=== PATIENT | male | born 1955 | race Caucasian/White ===

== ENCOUNTER 2018-01-31 10:18 | Outpatient (CLI) | payer OTHER ==
[~2018-01-31 10:18] MED LIST: [UNRECOGNIZED DRUG - OTHER] PO; multivit PO; vit c PO
[2018-01-31 11:01] LABS: BASOPHILS % (AUTO) 0.5 % (0-1); EOSINOPHILS # (AUTO) 0.2 X10'3 (0-0.9); HEMATOCRIT 46.2 % (42.0-52.0); HEMOGLOBIN 15.5 g/dl (14.0-17.9); LYMPHOCYTES # (AUTO) 5.4 X10'3 (1.1-4.8); LYMPHOCYTES % (AUTO) 54.1 % (21-51); MEAN CORPUSCULAR HGB CONC 33.5 % (33.0-36.5); MEAN CORPUSCULAR VOLUME 92.5 FL (78-98); MEAN PLATELET VOLUME 8.2 FL (7.4-10.4); MONOCYTES # (AUTO) 0.9 X10'3 (0-0.9); NEUTROPHILS # (AUTO) 3.4 X10'3 (1.8-7.7); NEUTROPHILS % (AUTO) 34.4 % (42-75); PLATELET COUNT 299 X10'3 (140-440); RED BLOOD COUNT 4.99 X10'6 (4.70-6.10); RED CELL DISTRIBUTION WIDTH 13.7 % (11.5-14.5)
== END 2018-01-31 23:59 | disposition home or self-care (01) ==
LOC: LAB 10:18
PROVIDERS: ATTEND Anesthesiology
DX: C95.90 Leukemia, unspecified not having achieved remission (principal); Z87.891 Personal history of nicotine dependence
CPT/HCPCS: 36415; 85025

== ENCOUNTER 2019-09-27 10:58 | Outpatient (CLI) | payer OTHER | END 2019-09-27 23:59 | disposition home or self-care (01) | LOC: 64 CT 10:58 | PROVIDERS: ATTEND Internal Medicine | DX: I35.9 Nonrheumatic aortic valve disorder, unspecified (principal) | CPT/HCPCS: 71250 ==

== ENCOUNTER 2019-09-28 15:10 | Outpatient (CLI) | payer OTHER ==
[2019-09-28 16:09] LABS: ALBUMIN 3.4 G/DL (3.4-5.0); ANION GAP 12 (8-16); BLOOD UREA NITROGEN 19 MG/DL (7-18); BUN/CREATININE RATIO 15.3 (5.4-32.0); CALCIUM 8.5 MG/DL (8.5-10.1); CHLORIDE 107 MMOL/L (99-107); CREATININE 1.24 MG/DL (0.60-1.10); GLUCOSE 104 MG/DL (70-104); PHOSPHORUS 2.9 MG/DL (2.3-4.5); POTASSIUM 3.8 MMOL/L (3.5-5.1); SODIUM 143 MMOL/L (135-145); TOTAL CARBON DIOXIDE 23.8 MMOL/L (24-32); eGFR 59 ML/MIN
[2019-09-28] MEDS ORDERED: iohexol 300mg/ml 100ml inj. ONE (16:14)
== END 2019-09-28 23:59 | disposition home or self-care (01) ==
LOC: 64 CT 15:10
PROVIDERS: ATTEND Internal Medicine
DX: R59.9 Enlarged lymph nodes, unspecified (principal); R94.5 Abnormal results of liver function studies
CPT/HCPCS: 36415; 71260; 80069; Q9967

== ENCOUNTER 2020-01-22 09:49 | Outpatient (CLI) | payer OTHER ==
[2020-01-22] MEDS ORDERED: iohexol 300mg/ml 100ml inj. ONE (09:55)
== END 2020-01-22 23:59 | disposition home or self-care (01) ==
LOC: 64 CT 09:49
PROVIDERS: ATTEND Internal Medicine Hematology & Oncology
DX: C91.40 Hairy cell leukemia not having achieved remission (principal); K40.90 Unilateral inguinal hernia, without obstruction or gangrene, not specified as recurrent; K59.00 Constipation, unspecified; N28.1 Cyst of kidney, acquired
CPT/HCPCS: 70491; 71260; 74177; Q9967

== ENCOUNTER 2020-03-25 07:22 | Outpatient (CLI) | payer BC ==
[2020-03-25 08:05] LABS: BASOPHILS # (AUTO) 0.1 X10'3 (0-0.2); EOSINOPHILS # (AUTO) 0.8 X10'3 (0-0.9); EOSINOPHILS % (AUTO) 10.9 % (0-6); HEMATOCRIT 44.1 % (42.0-52.0); HEMOGLOBIN 14.8 g/dl (14.0-17.9); LYMPHOCYTES % (AUTO) 14.2 % (21-51); MEAN CORPUSCULAR HEMOGLOBIN 30.8 PG (27.0-31.0); MEAN CORPUSCULAR HGB CONC 33.5 g/dL (33.0-36.5); MEAN CORPUSCULAR VOLUME 92.1 FL (78-98); MEAN PLATELET VOLUME 7.4 FL (7.4-10.4); MONOCYTES # (AUTO) 1.4 X10'3 (0-0.9); MONOCYTES % (AUTO) 19.8 % (2-12); NEUTROPHILS # (AUTO) 3.7 X10'3 (1.8-7.7); NEUTROPHILS % (AUTO) 54.1 % (42-75); PLATELET COUNT 390 X10'3 (140-440); RED BLOOD COUNT 4.79 X10'6 (4.70-6.10); RED CELL DISTRIBUTION WIDTH 14.2 % (11.5-14.5); WHITE BLOOD COUNT 6.9 X10'3 (4.5-11.0)
[2020-03-25 08:25] LABS: ALANINE AMINOTRANSFERASE 26 U/L (12-78); ALBUMIN 3.4 G/DL (3.4-5.0); ALBUMIN/GLOBULIN RATIO 0.9 (1.1-1.5); ALKALINE PHOSPHATASE 90 IU/L (46-116); ANION GAP 10 (8-16); ASPARTATE AMINO TRANSFERASE 18 U/L (10-37); BILIRUBIN,TOTAL 0.3 MG/DL (0.1-1.0); BLOOD UREA NITROGEN 15 MG/DL (7-18); BUN/CREATININE RATIO 12.9 (5.4-32.0); CALCIUM 8.9 MG/DL (8.5-10.1); CHLORIDE 108 MMOL/L (99-107); CREATININE 1.16 MG/DL (0.60-1.10); GLUCOSE 93 MG/DL (70-104); LACTATE DEHYDROGENASE 171 U/L (85-227); MAGNESIUM 2.2 MG/DL (1.5-2.4); POTASSIUM 4.4 MMOL/L (3.5-5.1); SODIUM 143 MMOL/L (135-145); TOTAL CARBON DIOXIDE 25.5 MMOL/L (24-32); eGFR 63 ML/MIN
[2020-03-25 08:55] LABS: TOTAL CELLS COUNTED 100
[2020-03-25 08:56] LABS: PLATELET ESTIMATE NORMAL
[2020-03-25 08:58] LABS: SCHISTOCYTES FEW
[2020-03-25 08:59] LABS: BURR CELLS FEW
[2020-03-25 09:00] LABS: ACANTHOCYTES FEW
[2020-03-25 09:01] LABS: TOXIC GRANULATION 1+
[2020-03-25 09:13] LABS: IRON 56 UG/DL (53-167)
[2020-03-25 09:14] LABS: % IRON SATURATION 16 % (11-46); TOTAL IRON BINDING CAPACITY 367 UG/DL (259-388)
[2020-03-26 09:10] LABS: BASOS 1 % (Not Estab.); EOS 8 % (Not Estab.); EOS (ABSOLUTE) 0.6 x10E3/uL (0.0-0.4); HEMATOCRIT 45.2 % (37.5-51.0); HEMOGLOBIN 14.6 g/dL (13.0-17.7); LYMPHS 17 % (Not Estab.); LYMPHS (ABSOLUTE) 1.3 x10E3/uL (0.7-3.1); MCH 30.8 pg (26.6-33.0); MCHC 32.3 g/dL (31.5-35.7); MCV 95 fL (79-97); MONOCYTES 18 % (Not Estab.); MONOCYTES (ABSOLUTE) 1.4 x10E3/uL (0.1-0.9); NEUTROPHILS 56 % (Not Estab.); PLATELETS 388 x10E3/uL (150-450); RBC 4.74 x10E6/uL (4.14-5.80); RDW 14.5 % (11.6-15.4); WBC 7.7 x10E3/uL (3.4-10.8)
[2020-03-26 17:35] LABS: % CD 4 POS. LYMPH. 30.6 % (30.8-58.5); % CD 8 POS. LYMPH. 15.1 % (12.0-35.5); ABS. CD 8 SUPPRESSOR 196 /uL (109-897); ABSOLUTE CD 4 HELPER 398 /uL (359-1519); CD4/CD8 RATIO 2.03 (0.92-3.72)
== END 2020-03-25 23:59 | disposition home or self-care (01) ==
LOC: LAB 07:22
PROVIDERS: ATTEND Internal Medicine Hematology & Oncology
DX: C91.40 Hairy cell leukemia not having achieved remission (principal)
CPT/HCPCS: 36415; 80053; 82607; 83540; 83550; 83615; 83735; 84550; 85025; 86360

== ENCOUNTER 2020-04-08 07:57 | Outpatient (CLI) | payer BC ==
[2020-04-08 08:56] LABS: BASOPHILS # (AUTO) 0.1 X10'3 (0-0.2); BASOPHILS % (AUTO) 1.1 % (0-1); EOSINOPHILS # (AUTO) 0.7 X10'3 (0-0.9); EOSINOPHILS % (AUTO) 10.5 % (0-6); HEMOGLOBIN 15.2 g/dl (14.0-17.9); LYMPHOCYTES # (AUTO) 1.4 X10'3 (1.1-4.8); LYMPHOCYTES % (AUTO) 21.3 % (21-51); MEAN CORPUSCULAR HEMOGLOBIN 31.2 PG (27.0-31.0); MEAN CORPUSCULAR HGB CONC 33.7 g/dL (33.0-36.5); MEAN CORPUSCULAR VOLUME 92.6 FL (78-98); MEAN PLATELET VOLUME 7.5 FL (7.4-10.4); MONOCYTES # (AUTO) 1.3 X10'3 (0-0.9); MONOCYTES % (AUTO) 20.4 % (2-12); NEUTROPHILS # (AUTO) 3.1 X10'3 (1.8-7.7); NEUTROPHILS % (AUTO) 46.7 % (42-75); PLATELET COUNT 349 X10'3 (140-440); RED BLOOD COUNT 4.86 X10'6 (4.70-6.10); RED CELL DISTRIBUTION WIDTH 13.9 % (11.5-14.5); WHITE BLOOD COUNT 6.6 X10'3 (4.5-11.0)
[2020-04-08 09:10] LABS: ALANINE AMINOTRANSFERASE 27 U/L (12-78); ALBUMIN 3.4 G/DL (3.4-5.0); ALBUMIN/GLOBULIN RATIO 0.9 (1.1-1.5); ALKALINE PHOSPHATASE 69 IU/L (46-116); ANION GAP 8 (8-16); ASPARTATE AMINO TRANSFERASE 19 U/L (10-37); BILIRUBIN,TOTAL 0.4 MG/DL (0.1-1.0); BLOOD UREA NITROGEN 20 MG/DL (7-18); BUN/CREATININE RATIO 18.3 (5.4-32.0); CALCIUM 9.1 MG/DL (8.5-10.1); CHLORIDE 106 MMOL/L (99-107); CREATININE 1.09 MG/DL (0.60-1.10); GLUCOSE 96 MG/DL (70-104); LACTATE DEHYDROGENASE 167 U/L (85-227); MAGNESIUM 2.1 MG/DL (1.5-2.4); POTASSIUM 4.3 MMOL/L (3.5-5.1); SODIUM 139 MMOL/L (135-145); TOTAL CARBON DIOXIDE 24.7 MMOL/L (24-32); TOTAL PROTEIN 7.2 G/DL (6.4-8.2); eGFR 68 ML/MIN
[2020-04-08 10:57] LABS: BANDS% (MANUAL) 3 % (0-10); NEUTROPHILS % (MANUAL) 46 % (42-75); TOTAL CELLS COUNTED 100
[2020-04-08 10:58] LABS: BASOPHILS % (MANUAL) 2 % (0-1); EOSINOPHILS % (MANUAL) 10 % (0-6); HOWELL-JOLLY BODIES FEW; LYMPHOCYTES % (MANUAL) 17 % (21-51); MONOCYTES % (MANUAL) 18 % (2-12); PLATELET ESTIMATE NORMAL; POIKILOCYTOSIS 1+; POLYCHROMASIA FEW; REACTIVE LYMPHOCYTES % 4 % (0-0); SCHISTOCYTES FEW
[2020-04-08 10:59] LABS: BURR CELLS FEW
[2020-04-08 11:01] LABS: ACANTHOCYTES 1+; ELLIPTOCYTES FEW
[2020-04-09 11:14] LABS: BASO (ABSOLUTE) 0.1 x10E3/uL (0.0-0.2); BASOS 1 % (Not Estab.); EOS 10 % (Not Estab.); EOS (ABSOLUTE) 0.7 x10E3/uL (0.0-0.4); HEMATOCRIT 46.3 % (37.5-51.0); HEMATOLOGY COMMENTS: Note: (.); LYMPHS 24 % (Not Estab.); LYMPHS (ABSOLUTE) 1.6 x10E3/uL (0.7-3.1); MCH 30.9 pg (26.6-33.0); MCHC 32.4 g/dL (31.5-35.7); MCV 96 fL (79-97); MONOCYTES 21 % (Not Estab.); MONOCYTES (ABSOLUTE) 1.4 x10E3/uL (0.1-0.9); NEUTROPHILS 44 % (Not Estab.); NEUTROPHILS (ABSOLUTE) 2.9 x10E3/uL (1.4-7.0); PLATELETS 355 x10E3/uL (150-450); RBC 4.85 x10E6/uL (4.14-5.80); RDW 14.5 % (11.6-15.4); WBC 6.6 x10E3/uL (3.4-10.8)
[2020-04-09 17:18] LABS: % CD 4 POS. LYMPH. 27.6 % (30.8-58.5); % CD 8 POS. LYMPH. 26.7 % (12.0-35.5); ABS. CD 8 SUPPRESSOR 427 /uL (109-897); ABSOLUTE CD 4 HELPER 442 /uL (359-1519); CD4/CD8 RATIO 1.03 (0.92-3.72)
== END 2020-04-08 23:59 | disposition home or self-care (01) ==
LOC: LAB 07:57
PROVIDERS: ATTEND Internal Medicine Hematology & Oncology
DX: C91.40 Hairy cell leukemia not having achieved remission (principal); D50.8 Other iron deficiency anemias
CPT/HCPCS: 36415; 80053; 83615; 83735; 84550; 85025; 86360

== ENCOUNTER → 2020-07-18 | Outpatient (CLI) | payer BC ==
[2020-07-18 08:24] LABS: BASOPHILS # (AUTO) 0.1 X10'3 (0-0.2); BASOPHILS % (AUTO) 1.2 % (0-1); EOSINOPHILS # (AUTO) 0.5 X10'3 (0-0.9); EOSINOPHILS % (AUTO) 7.5 % (0-6); HEMATOCRIT 43.9 % (42.0-52.0); HEMOGLOBIN 14.7 g/dl (14.0-17.9); LYMPHOCYTES # (AUTO) 1.6 X10'3 (1.1-4.8); LYMPHOCYTES % (AUTO) 26.8 % (21-51); MEAN CORPUSCULAR HEMOGLOBIN 31.6 PG (27.0-31.0); MEAN CORPUSCULAR HGB CONC 33.6 g/dL (33.0-36.5); MEAN PLATELET VOLUME 7.8 FL (7.4-10.4); MONOCYTES # (AUTO) 0.9 X10'3 (0-0.9); MONOCYTES % (AUTO) 14.5 % (2-12); PLATELET COUNT 327 X10'3 (140-440); RED BLOOD COUNT 4.66 X10'6 (4.70-6.10); RED CELL DISTRIBUTION WIDTH 14.5 % (11.5-14.5)
[2020-07-18 08:36] LABS: ALANINE AMINOTRANSFERASE 27 U/L (12-78); ALBUMIN 3.5 G/DL (3.4-5.0); ALKALINE PHOSPHATASE 79 IU/L (46-116); ANION GAP 6 (8-16); ASPARTATE AMINO TRANSFERASE 17 U/L (10-37); BILIRUBIN,TOTAL 0.4 MG/DL (0.1-1.0); BLOOD UREA NITROGEN 15 MG/DL (7-18); BUN/CREATININE RATIO 14.6 (5.4-32.0); CALCIUM 8.9 MG/DL (8.5-10.1); CHLORIDE 110 MMOL/L (99-107); CREATININE 1.03 MG/DL (0.60-1.10); GLUCOSE 81 MG/DL (70-104); LACTATE DEHYDROGENASE 151 U/L (85-227); MAGNESIUM 2.4 MG/DL (1.5-2.4); POTASSIUM 4.1 MMOL/L (3.5-5.1); SODIUM 144 MMOL/L (135-145); TOTAL CARBON DIOXIDE 28.5 MMOL/L (24-32); eGFR 72 ML/MIN
[2020-07-18 09:22] LABS: IRON 80 UG/DL (53-167)
== END | disposition home or self-care (01) ==
LOC: LAB 07:50
PROVIDERS: ATTEND Internal Medicine Hematology & Oncology
DX: C91.40 Hairy cell leukemia not having achieved remission (principal); D50.8 Other iron deficiency anemias
CPT/HCPCS: 36415; 80053; 82607; 83540; 83615; 83735; 84550; 85025

== ENCOUNTER 2020-10-27 08:16 | Outpatient (CLI) | payer BC ==
[2020-10-27 09:03] LABS: BASOPHILS % (AUTO) 0.8 % (0-1); EOSINOPHILS # (AUTO) 0.5 X10'3 (0-0.9); EOSINOPHILS % (AUTO) 9.3 % (0-6); HEMATOCRIT 43.4 % (42.0-52.0); HEMOGLOBIN 14.7 g/dl (14.0-17.9); LYMPHOCYTES # (AUTO) 1.5 X10'3 (1.1-4.8); LYMPHOCYTES % (AUTO) 26.5 % (21-51); MEAN CORPUSCULAR HEMOGLOBIN 32.2 PG (27.0-31.0); MEAN CORPUSCULAR HGB CONC 33.9 g/dL (33.0-36.5); MEAN CORPUSCULAR VOLUME 95.1 FL (78-98); MEAN PLATELET VOLUME 7.5 FL (7.4-10.4); MONOCYTES # (AUTO) 0.8 X10'3 (0-0.9); MONOCYTES % (AUTO) 15.5 % (2-12); NEUTROPHILS # (AUTO) 2.6 X10'3 (1.8-7.7); NEUTROPHILS % (AUTO) 47.9 % (42-75); PLATELET COUNT 317 X10'3 (140-440); RED BLOOD COUNT 4.57 X10'6 (4.70-6.10); RED CELL DISTRIBUTION WIDTH 13.5 % (11.5-14.5); WHITE BLOOD COUNT 5.5 X10'3 (4.5-11.0)
[2020-10-27 09:18] LABS: ALANINE AMINOTRANSFERASE 31 U/L (12-78); ALBUMIN 3.7 G/DL (3.4-5.0); ALBUMIN/GLOBULIN RATIO 1.1 (1.1-1.5); ALKALINE PHOSPHATASE 69 IU/L (46-116); ANION GAP 8 (8-16); ASPARTATE AMINO TRANSFERASE 23 U/L (10-37); BILIRUBIN,TOTAL 0.5 MG/DL (0.1-1.0); BLOOD UREA NITROGEN 15 MG/DL (7-18); BUN/CREATININE RATIO 13.2 (5.4-32.0); CHLORIDE 107 MMOL/L (99-107); CREATININE 1.14 MG/DL (0.60-1.10); GLUCOSE 82 MG/DL (70-104); POTASSIUM 4.1 MMOL/L (3.5-5.1); SODIUM 143 MMOL/L (135-145); TOTAL CARBON DIOXIDE 27.8 MMOL/L (24-32); TOTAL PROTEIN 7.2 G/DL (6.4-8.2); eGFR 64 ML/MIN
== END 2020-10-27 23:59 | disposition home or self-care (01) ==
LOC: LAB 08:16
PROVIDERS: ATTEND Internal Medicine
DX: R94.5 Abnormal results of liver function studies (principal); Z85.6 Personal history of leukemia
CPT/HCPCS: 80053; 85025

== ENCOUNTER 2020-11-03 08:32 | Outpatient (CLI) | payer BC ==
[2020-11-03] MEDS ORDERED: iohexol 300 MG/1 ML 50ml polymer ONE (09:01)
[2020-11-03] MEDS ORDERED: iohexol 300mg/ml 100ml inj. ONE (09:01)
== END 2020-11-03 23:59 | disposition home or self-care (01) ==
LOC: 64 CT 08:32
PROVIDERS: ATTEND Internal Medicine
DX: C91.40 Hairy cell leukemia not having achieved remission (principal); R91.8 Other nonspecific abnormal finding of lung field; M48.02 Spinal stenosis, cervical region; M50.323 Other cervical disc degeneration at C6-C7 level; K40.90 Unilateral inguinal hernia, without obstruction or gangrene, not specified as recurrent; N40.0 Benign prostatic hyperplasia without lower urinary tract symptoms; N28.1 Cyst of kidney, acquired
CPT/HCPCS: 70491; 71260; 74177; Q9967

== ENCOUNTER 2021-02-10 08:45 | Outpatient (CLI) | payer BC ==
[2021-02-10 09:28] LABS: BASOPHILS # (AUTO) 0.1 X10'3 (0-0.2); BASOPHILS % (AUTO) 0.8 % (0-1); EOSINOPHILS # (AUTO) 0.4 X10'3 (0-0.9); EOSINOPHILS % (AUTO) 5.9 % (0-6); HEMATOCRIT 42.2 % (42.0-52.0); HEMOGLOBIN 14.3 g/dl (14.0-17.9); LYMPHOCYTES # (AUTO) 2.6 X10'3 (1.1-4.8); MEAN CORPUSCULAR HEMOGLOBIN 32.7 PG (27.0-31.0); MEAN CORPUSCULAR HGB CONC 33.9 g/dL (33.0-36.5); MEAN CORPUSCULAR VOLUME 96.6 FL (78-98); MEAN PLATELET VOLUME 7.5 FL (7.4-10.4); MONOCYTES # (AUTO) 0.9 X10'3 (0-0.9); MONOCYTES % (AUTO) 13.6 % (2-12); NEUTROPHILS # (AUTO) 2.5 X10'3 (1.8-7.7); NEUTROPHILS % (AUTO) 39.7 % (42-75); PLATELET COUNT 310 X10'3 (140-440); RED BLOOD COUNT 4.37 X10'6 (4.70-6.10); RED CELL DISTRIBUTION WIDTH 13.6 % (11.5-14.5); WHITE BLOOD COUNT 6.4 X10'3 (4.5-11.0)
== END 2021-02-10 23:59 | disposition home or self-care (01) ==
LOC: LAB 08:45
PROVIDERS: ATTEND Internal Medicine
DX: C91.42 Hairy cell leukemia, in relapse (principal)
CPT/HCPCS: 36415; 85025

== ENCOUNTER 2021-05-12 07:57 | Outpatient (CLI) | payer BC ==
[2021-05-12 09:17] LABS: BASOPHILS # (AUTO) 0.1 X10'3 (0-0.2); BASOPHILS % (AUTO) 1.2 % (0-1); EOSINOPHILS # (AUTO) 0.2 X10'3 (0-0.9); EOSINOPHILS % (AUTO) 3.3 % (0-6); HEMATOCRIT 42.6 % (42.0-52.0); HEMOGLOBIN 14.4 g/dl (14.0-17.9); LYMPHOCYTES # (AUTO) 2.9 X10'3 (1.1-4.8); LYMPHOCYTES % (AUTO) 39.6 % (21-51); MEAN CORPUSCULAR HEMOGLOBIN 32.4 PG (27.0-31.0); MEAN CORPUSCULAR HGB CONC 33.7 g/dL (33.0-36.5); MEAN CORPUSCULAR VOLUME 96.2 FL (78-98); MONOCYTES # (AUTO) 0.7 X10'3 (0-0.9); MONOCYTES % (AUTO) 9.6 % (2-12); NEUTROPHILS # (AUTO) 3.4 X10'3 (1.8-7.7); NEUTROPHILS % (AUTO) 46.3 % (42-75); PLATELET COUNT 318 X10'3 (140-440); RED BLOOD COUNT 4.43 X10'6 (4.70-6.10); RED CELL DISTRIBUTION WIDTH 13.2 % (11.5-14.5); WHITE BLOOD COUNT 7.4 X10'3 (4.5-11.0)
== END 2021-05-12 23:59 | disposition home or self-care (01) ==
LOC: LAB 07:57
PROVIDERS: ATTEND Internal Medicine
DX: C91.42 Hairy cell leukemia, in relapse (principal); I10 Essential (primary) hypertension
CPT/HCPCS: 85025

== ENCOUNTER 2021-06-17 08:10 | Outpatient (CLI) | payer BC ==
[2021-06-17 09:16] LABS: BASOPHILS # (AUTO) 0.1 X10'3 (0-0.2); BASOPHILS % (AUTO) 0.9 % (0-1); EOSINOPHILS # (AUTO) 0.3 X10'3 (0-0.9); EOSINOPHILS % (AUTO) 4.8 % (0-6); HEMATOCRIT 41.8 % (42.0-52.0); HEMOGLOBIN 14.1 g/dl (14.0-17.9); LYMPHOCYTES # (AUTO) 2.5 X10'3 (1.1-4.8); LYMPHOCYTES % (AUTO) 41.9 % (21-51); MEAN CORPUSCULAR HEMOGLOBIN 32.5 PG (27.0-31.0); MEAN CORPUSCULAR HGB CONC 33.8 g/dL (33.0-36.5); MEAN CORPUSCULAR VOLUME 96.1 FL (78-98); MONOCYTES # (AUTO) 0.7 X10'3 (0-0.9); NEUTROPHILS # (AUTO) 2.4 X10'3 (1.8-7.7); NEUTROPHILS % (AUTO) 40.4 % (42-75); PLATELET COUNT 317 X10'3 (140-440); RED BLOOD COUNT 4.35 X10'6 (4.70-6.10); RED CELL DISTRIBUTION WIDTH 13.5 % (11.5-14.5)
== END 2021-06-17 23:59 | disposition home or self-care (01) ==
LOC: LAB 08:10
PROVIDERS: ATTEND Internal Medicine
DX: C91.40 Hairy cell leukemia not having achieved remission (principal)
CPT/HCPCS: 36415; 85025

== ENCOUNTER 2021-10-02 08:43 | Outpatient (CLI) | payer BC ==
[2021-10-01 09:29] LABS: BASOPHILS # (AUTO) 0.1 X10'3 (0-0.2); BASOPHILS % (AUTO) 0.8 % (0-1); EOSINOPHILS # (AUTO) 0.3 X10'3 (0-0.9); EOSINOPHILS % (AUTO) 4.7 % (0-6); HEMATOCRIT 42.7 % (42.0-52.0); HEMOGLOBIN 14.4 g/dl (14.0-17.9); LYMPHOCYTES % (AUTO) 42.3 % (21-51); MEAN CORPUSCULAR HEMOGLOBIN 32.2 PG (27.0-31.0); MEAN CORPUSCULAR HGB CONC 33.7 g/dL (33.0-36.5); MEAN CORPUSCULAR VOLUME 95.3 FL (78-98); MEAN PLATELET VOLUME 7.7 FL (7.4-10.4); MONOCYTES # (AUTO) 0.8 X10'3 (0-0.9); MONOCYTES % (AUTO) 10.8 % (2-12); NEUTROPHILS # (AUTO) 2.9 X10'3 (1.8-7.7); NEUTROPHILS % (AUTO) 41.4 % (42-75); PLATELET COUNT 324 X10'3 (140-440); RED BLOOD COUNT 4.48 X10'6 (4.70-6.10); RED CELL DISTRIBUTION WIDTH 13.7 % (11.5-14.5); WHITE BLOOD COUNT 7.1 X10'3 (4.5-11.0)
[2021-10-01 09:44] LABS: ALANINE AMINOTRANSFERASE 25 U/L (12-78); ALBUMIN 3.6 G/DL (3.4-5.0); ALBUMIN/GLOBULIN RATIO 1.1 (1.1-1.5); ALKALINE PHOSPHATASE 69 IU/L (46-116); ASPARTATE AMINO TRANSFERASE 20 U/L (10-37); BILIRUBIN,TOTAL 0.5 MG/DL (0.1-1.0); BLOOD UREA NITROGEN 19 MG/DL (7-18); BUN/CREATININE RATIO 17.4 (5.4-32.0); CALCIUM 9.5 MG/DL (8.5-10.1); CHLORIDE 106 MMOL/L (99-107); CREATININE 1.09 MG/DL (0.60-1.10); GLUCOSE 81 MG/DL (70-104); TOTAL PROTEIN 6.9 G/DL (6.4-8.2); eGFR 68 ML/MIN
[2021-10-01 09:45] LABS: POTASSIUM 4.2 MMOL/L (3.5-5.1); SODIUM 140 MMOL/L (135-145)
[2021-10-01 11:53] LABS: ANION GAP 7 (8-16); TOTAL CARBON DIOXIDE 26.9 MMOL/L (24-32)
[2021-10-02] MEDS ORDERED: GADOTERATE MEGLUMINE 7.5 MMOL/15 ML VIAL IV ONE (12:42)
== END 2021-10-02 23:59 | disposition home or self-care (01) ==
LOC: RAD 08:43
PROVIDERS: ATTEND Otolaryngology
DX: H90.5 Unspecified sensorineural hearing loss (principal); R93.0 Abnormal findings on diagnostic imaging of skull and head, not elsewhere classified; I10 Essential (primary) hypertension
CPT/HCPCS: 36415; 70546; 80053; 85025; A9575

== ENCOUNTER → 2021-10-22 | Outpatient (CLI) | payer BC ==
[2021-10-22 10:02] LABS: BASOPHILS # (AUTO) 0.1 X10'3 (0-0.2); BASOPHILS % (AUTO) 0.8 % (0-1); EOSINOPHILS # (AUTO) 0.4 X10'3 (0-0.9); EOSINOPHILS % (AUTO) 4.9 % (0-6); HEMATOCRIT 44.4 % (42.0-52.0); LYMPHOCYTES # (AUTO) 3.3 X10'3 (1.1-4.8); LYMPHOCYTES % (AUTO) 43.4 % (21-51); MEAN CORPUSCULAR HEMOGLOBIN 32.1 PG (27.0-31.0); MEAN CORPUSCULAR HGB CONC 33.8 g/dL (33.0-36.5); MEAN CORPUSCULAR VOLUME 95.1 FL (78-98); MEAN PLATELET VOLUME 7.9 FL (7.4-10.4); MONOCYTES # (AUTO) 0.7 X10'3 (0-0.9); MONOCYTES % (AUTO) 9.6 % (2-12); NEUTROPHILS # (AUTO) 3.1 X10'3 (1.8-7.7); NEUTROPHILS % (AUTO) 41.3 % (42-75); PLATELET COUNT 315 X10'3 (140-440); RED BLOOD COUNT 4.67 X10'6 (4.70-6.10); RED CELL DISTRIBUTION WIDTH 13.5 % (11.5-14.5); WHITE BLOOD COUNT 7.5 X10'3 (4.5-11.0)
[2021-10-23 17:00] LABS: IMMUNOGLOBULIN A, QN, SERUM 235 mg/dL (61-437); IMMUNOGLOBULIN G, QN, SERUM 1268 mg/dL (603-1613); IMMUNOGLOBULIN M, QN, SERUM 52 mg/dL (20-172)
== END | disposition home or self-care (01) ==
LOC: LAB 09:15
PROVIDERS: ATTEND Internal Medicine
DX: C91.40 Hairy cell leukemia not having achieved remission (principal)
CPT/HCPCS: 36415; 82784; 85025

== ENCOUNTER 2021-11-02 08:02 | Outpatient (CLI) | payer BC ==
[2021-11-02 09:09] LABS: BASOPHILS # (AUTO) 0.1 X10'3 (0-0.2); EOSINOPHILS # (AUTO) 0.4 X10'3 (0-0.9); EOSINOPHILS % (AUTO) 4.1 % (0-6); HEMATOCRIT 43.9 % (42.0-52.0); LYMPHOCYTES # (AUTO) 2.9 X10'3 (1.1-4.8); LYMPHOCYTES % (AUTO) 31.7 % (21-51); MEAN CORPUSCULAR HEMOGLOBIN 32.3 PG (27.0-31.0); MEAN CORPUSCULAR HGB CONC 34.1 g/dL (33.0-36.5); MEAN CORPUSCULAR VOLUME 94.7 FL (78-98); MEAN PLATELET VOLUME 7.9 FL (7.4-10.4); MONOCYTES # (AUTO) 0.8 X10'3 (0-0.9); MONOCYTES % (AUTO) 9.2 % (2-12); NEUTROPHILS # (AUTO) 4.9 X10'3 (1.8-7.7); PLATELET COUNT 333 X10'3 (140-440); RED BLOOD COUNT 4.64 X10'6 (4.70-6.10); RED CELL DISTRIBUTION WIDTH 13.6 % (11.5-14.5)
[2021-11-03 10:29] LABS: IMMUNOGLOBULIN A, QN, SERUM 234 mg/dL (61-437); IMMUNOGLOBULIN G, QN, SERUM 1251 mg/dL (603-1613); IMMUNOGLOBULIN M, QN, SERUM 54 mg/dL (20-172)
== END 2021-11-02 23:59 | disposition home or self-care (01) ==
LOC: LAB 08:02
PROVIDERS: ATTEND Internal Medicine
DX: C91.40 Hairy cell leukemia not having achieved remission (principal)
CPT/HCPCS: 36415; 82784; 85025

== ENCOUNTER 2022-09-01 08:32 | Day surgery (SDC) | payer BC ==
[~2022-09-01] VITALS: Ht 175.3 cm; Wt 68.2 kg
[2022-09-01 08:40] VITALS: BP 118/71
[2022-09-01] MEDS ORDERED: FENTANYL CITRATE/PF 50 MCG/1 ML VIAL ONE (08:55)
[2022-09-01] MEDS ORDERED: MIDAZolam 1 MG/ML 5ML VIAL ONE (08:56)
[2022-09-01 10:20] VITALS: BP 118/71
[2022-09-01 10:30] VITALS: BP 94/55
[2022-09-01 10:40] VITALS: BP 103/56
[2022-09-01 10:50] VITALS: BP 107/56
== END 2022-09-01 11:00 | disposition home or self-care (01) ==
LOC: GI LAB 08:32
PROVIDERS: ATTEND Internal Medicine Gastroenterology
DX: Z09 Encounter for follow-up examination after completed treatment for conditions other than malignant neoplasm (principal); K57.30 Diverticulosis of large intestine without perforation or abscess without bleeding; Z86.010 Personal history of colon polyps; Z88.0 Allergy status to penicillin; Z79.899 Other long term (current) drug therapy; Z98.890 Other specified postprocedural states
CPT/HCPCS: 45378; 99152; J2250; J3010; J7030; Z7512; 99153; A4620

== ENCOUNTER 2025-01-08 14:11 | Outpatient (CLI) | payer BC ==
[2025-01-08 14:56] LABS: BASOPHILS # (AUTO) 0.1 X10'3 (0-0.2); BASOPHILS % (AUTO) 0.7 % (0-1); BILIRUBIN,URINE NEGATIVE (Neg); CLARITY,URINE CLEAR (Clear); COLOR,URINE YELLOW (Yellow); EOSINOPHILS # (AUTO) 0.5 X10'3 (0-0.9); EOSINOPHILS % (AUTO) 5.6 % (0-6); GLUCOSE, URINE NEGATIVE (Neg); HEMATOCRIT 41.6 % (42.0-52.0); HEMOGLOBIN 13.8 g/dl (14.0-17.9); KETONES,URINE NEGATIVE (Neg); LEUKOCYTE ESTERASE ,URINE NEGATIVE (Neg); LYMPHOCYTES # (AUTO) 4.7 X10'3 (1.1-4.8); LYMPHOCYTES % (AUTO) 51.5 % (21-51); MEAN CORPUSCULAR HEMOGLOBIN 30.9 PG (27.0-31.0); MEAN CORPUSCULAR HGB CONC 33.1 g/dL (33.0-36.5); MEAN CORPUSCULAR VOLUME 93.4 FL (78-98); MEAN PLATELET VOLUME 7.7 FL (7.4-10.4); MONOCYTES # (AUTO) 0.8 X10'3 (0-0.9); MONOCYTES % (AUTO) 8.9 % (2-12); NEUTROPHILS % (AUTO) 33.3 % (42-75); NITRITES, URINE NEGATIVE (Neg); OCCULT BLOOD,URINE TRACE-INTACT (Neg); PH,URINE 5.5 (4.8-8.0); PLATELET COUNT 324 X10'3 (140-440); PROTEIN,URINE NEGATIVE (Neg); RED BLOOD COUNT 4.45 X10'6 (4.70-6.10); RED CELL DISTRIBUTION WIDTH 15.4 % (11.5-14.5); UROBILINOGEN,URINE 0.2 E.U/dL (0.2-1.0); WHITE BLOOD COUNT 9.1 X10'3 (4.5-11.0)
[2025-01-08 14:59] LABS: UA COLLECTION TYPE CLN CATCH MIDSTREAM
[2025-01-08 15:07] LABS: BACTERIA,URINE NONE SEEN /HPF (Neg); RBC,URINE 0-2 /HPF (0-2); SQUAMOUS EPITHELIAL CELL,UR FEW /LPF (FEW); WBC,URINE 0-4 /HPF (0-4)
[2025-01-08 15:19] LABS: ALANINE AMINOTRANSFERASE 29 U/L (12-78); ALBUMIN 3.4 G/DL (3.4-5.0); ALBUMIN/GLOBULIN RATIO 0.9 (1.1-1.5); ALKALINE PHOSPHATASE 89 IU/L (46-116); ANION GAP 7 (8-16); ASPARTATE AMINO TRANSFERASE 18 U/L (10-37); BILIRUBIN,TOTAL 0.3 MG/DL (0.1-1.0); BLOOD UREA NITROGEN 23 MG/DL (7-18); BUN/CREATININE RATIO 21.5 (10.0-20.0); CHLORIDE 105 MMOL/L (99-107); CHOLESTEROL 184 MG/DL (0-200); CREATININE 1.07 MG/DL (0.60-1.10); GLUCOSE 77 MG/DL (70-104); HDL CHOLESTEROL 62 MG/DL (35-60); LDL CHOLESTEROL 96 MG/DL (50-100); POTASSIUM 3.5 MMOL/L (3.5-5.1); SODIUM 140 MMOL/L (135-145); TOTAL CARBON DIOXIDE 27.8 MMOL/L (24-32); TOTAL PROTEIN 7.1 G/DL (6.4-8.2); TRIGLYCERIDES 145 MG/DL (20-135); eGFR 69 ML/MIN
[2025-01-08 15:21] LABS: PLATELET ESTIMATE NORMAL; TOTAL CELLS COUNTED 100
[2025-01-08 15:22] LABS: ELLIPTOCYTES FEW; POIKILOCYTOSIS 1+
[2025-01-08 15:23] LABS: ACANTHOCYTES FEW; BURR CELLS 1+; LARGE PLATELETS FEW
== END 2025-01-08 23:59 | disposition home or self-care (01) ==
LOC: LAB 14:11
PROVIDERS: ATTEND Internal Medicine
DX: I10 Essential (primary) hypertension (principal); E78.5 Hyperlipidemia, unspecified; N39.0 Urinary tract infection, site not specified
CPT/HCPCS: 36415; 80053; 80061; 81001; 84153; 85007; 85025

== ENCOUNTER 2025-03-19 11:56 | Outpatient (CLI) | payer BC ==
[2025-03-19] MEDS ORDERED: iohexol 300mg/ml 100ml inj. ONE (12:27)
[2025-03-19] MEDS ORDERED: iohexol 300 MG/1 ML 50ml polymer ONE (12:27)
[2025-03-19 12:56] LABS: ALBUMIN 3.5 G/DL (3.4-5.0); ANION GAP 5 (8-16); BLOOD UREA NITROGEN 20 MG/DL (7-18); BUN/CREATININE RATIO 16.9 (10.0-20.0); CALCIUM 9.4 MG/DL (8.5-10.1); CHLORIDE 104 MMOL/L (99-107); CREATININE 1.18 MG/DL (0.60-1.10); GLUCOSE 91 MG/DL (70-104); POTASSIUM 3.9 MMOL/L (3.5-5.1); SODIUM 138 MMOL/L (135-145); TOTAL CARBON DIOXIDE 28.8 MMOL/L (24-32); eGFR 61 ML/MIN
--- NOTE | 2025-03-19 22:11 | RADIOLOGY REPORT ---
CT Neck with Contrast CLINICAL HISTORY: HAIRY CELL LEUKEMIA, IN REMISSION TECHNIQUE: CT of the neck was performed with 150 ml of omnipaque 300 administered intravenously. This exam was performed according to our departmental dose optimization program. Up-to-date CT equipment and radiation dose reduction techniques are utilized as appropriate. WID: COMPARISON: CT NECK SOFT TISSUES on DOS: 11/03/20 Neck findings: Brain and Orbits: The visualized intracranial and intraorbital structures appear grossly unremarkable . Sinuses and Mastoids: The visualized paranasal sinuses and mastoid air cells are clear. Parotid and Submandibular Glands: The parotid and submandibular glands appear unremarkable. Cervical Lymph Nodes: There are a few mildly prominent bilateral level 2 cervical lymph nodes (series 2, image 51) which are still technically normal-sized by CT size criteria with less than 1 cm short axis measurement. Otherwise no pathologically enlarged cervical lymph nodes. Thyroid: No significant thyroid abnormalities are seen. Larynx and Hypopharynx: The larynx and hypopharynx appear normal. Oral Cavity, Oropharynx, and Nasopharynx: The base of the tongue, oropharyngeal region, and posterior nasopharynx appear unremarkable. Cervical Vasculature: There is mild soft atherosclerotic plaque in the right carotid bifurcation and extending into the right internal carotid artery and calcified atherosclerotic plaque in the proximal left internal carotid artery. Osseous Structures: No destructive osseous lesions are seen. There is moderate multilevel cervical sp ondylosis. There is a periapical lucency within the 1st left mandibular molar. Visualized Upper Lungs: See separately dictated same-day CT chest. IMPRESSION: 1. No pathologically enlarged cervical lymph nodes by CT size criteria. 2. No acute abnormality. 3. Periapical lucency in the 1st left mandibular molar.
--- NOTE | 2025-03-19 23:18 | RADIOLOGY REPORT ---
CLINICAL HISTORY: HAIRY CELL LEUKEMIA, IN REMISSION TECHNIQUE: CT of the chest, abdomen and pelvis was performed with IV contrast 150 mL Omnipaque 300 in jected This exam was performed according to our departmental dose optimization program. Up-to-date CT equipment and radiation dose reduction techniques are utilized as appropriate. CTDI: 10.32+ 8.35+ 0.14 DLP: 142.47 COMPARISON: CT CHEST ABDOMEN PELVIS on DOS: 11/03/20 FINDINGS: CHEST FINDINGS: Lower Neck: Unremarkable Axilla, Mediastinum and Gladys: There is increase in size of bilateral axillary lymph nodes although ar e technically normal-sized by CT size criteria for example a round right axillary lymph node on serie s 2, image 25 and a left axillary lymph node on series 2, image 11 measuring 0.9 cm in short axis dim ension. There is no mediastinal or hilar lymphadenopathy. Heart and Great Vessels: Normal-sized heart without pericardial effusion. At least mild coronary chase ry calcifications. The thoracic aorta is patent and normal caliber with mild calcified atherosclerot ic plaque. The central pulmonary arteries are normal caliber. Airway, Lungs and Pleura: Trachea and central airways are patent. A few subtle ground-glass opacities in the left upper lobe. No airspace consolidation, pleural effusion, or pneumothorax. Scattered mini mal linear atelectasis or scarring in the lungs. Chest Wall and Osseous Structures: Mild right curvature of the thoracic spine. Mild thoracic spondylo sis. No destructive osseous lesion. Abdomen and Pelvis Findings: Liver and Biliary system: Normal-sized liver. No discrete hepatic lesion. The major portal veins are patent. Gallbladder is normal caliber. There is no biliary ductal dilatation. Spleen: Prior splenectomy. Adrenal Glands and Kidneys: Normal adrenal glands. There are bilateral renal cysts and additional tin y bilateral renal hypodensities which are too small to characterize. There is no hydronephrosis or ne phrolithiasis. Pancreas and Retroperitoneum: Normal pancreas. Multiple normal-sized retroperitoneal lymph nodes alth ough overall appear increased in size since 2020. No pathologically enlarged retroperitoneal lymph no jeannette. Aorta and Major Vessels: Aortoiliac vessels are patent and normal caliber with mild calcified atheros clerotic plaque. Bowel, Mesentery and Peritoneal space: Normal caliber small and large bowel. No free air or fluid col lection. Mildly prominent though technically normal-sized lower right mesenteric lymph node on series 3, image 54. Pelvis: Prior bilateral lymph node dissection. Prior prostatectomy. No pelvic lymphadenopathy. Urinar y bladder is mildly distended. Abdominal wall and Osseous Structures: Mild lumbar spondylosis. Minor left curvature of the lumbar sp ine. No destructive osseous lesion. IMPRESSION: 1. Increase in size of bilateral axillary and retroperitoneal lymph nodes although are technically no rmal-sized by CT size criteria. This is indeterminate between leukemic involvement versus reactive ly mphadenopathy. Attention on close follow-up imaging recommended. 2. A few subtle ground-glass opacities in the left upper lobe which could be atypical infection. 3. Bilateral renal cysts. 4. At least mild calcified coronary artery disease. 5. Prior prostatectomy and pelvic lymph node dissection.
== END 2025-03-19 23:59 | disposition home or self-care (01) ==
LOC: 64 CT 11:56
PROVIDERS: ATTEND Student in an Organized Health Care Education/Training Program
DX: Z01.818 Encounter for other preprocedural examination (principal); M47.814 Spondylosis without myelopathy or radiculopathy, thoracic region; C91.41 Hairy cell leukemia, in remission; M43.8X6 Other specified deforming dorsopathies, lumbar region; R59.0 Localized enlarged lymph nodes; I65.23 Occlusion and stenosis of bilateral carotid arteries
CPT/HCPCS: 36415; 70491; 71260; 74177; 80048; Q9967